=== PATIENT | female | born 1980 | race Caucasian/White ===

== ENCOUNTER 2017-12-29 09:47 | Day surgery (SDC) | payer BC, OTHER ==
[2017-12-28 12:45] VITALS: BMI 22.3
[2017-12-29] MEDS ORDERED: Lidocaine 1% PF 5 ML VIAL ONE (11:11)
[2017-12-29] MEDS ORDERED: PROPOFOL 200 MG/20 ML VIAL ONE (11:11)
[2017-12-29] MEDS ORDERED: Ondansetron HCl/PF 4 MG/2 ML Vial ONE (11:11)
[2017-12-29] MEDS ORDERED: Dexamethasone 20 MG/5 ML VIAL ONE (11:11)
[2017-12-29] MEDS ORDERED: Bupivacaine/Epinephrine 0.25% 30 ML VIAL ONE (11:34)
[2017-12-29] MEDS ORDERED: Fentanyl 100 MCG/2 ML VIAL ONE (11:38)
--- NOTE | 2017-12-29 15:35 | OP ---
DATE OF PROCEDURE: 12/29/2017 PREOPERATIVE DIAGNOSIS: Seizure disorder with a failed vagal nerve stimulator. POSTOPERATIVE DIAGNOSIS: Seizure disorder. PROCEDURE PERFORMED: Removal of vagal nerve stimulator. PROCEDURE IN DETAIL: After consent was obtained, the patient was identified and brought to the opera ting room and placed on the operating table in supine position. General endotracheal anesthesia was obtained. The patient was positioned for surgery. The site of previous excision was identified and it was prepped and draped in sterile fashion. The area was infiltrated with 0.25% Marcaine with 1:10 0,000 epinephrine. The previous scar was excised and the fatty tissue of the breast was dissected do wn until the capsule of the simulator was encountered. We were then able to deliver the stimulator f rom the fibrous capsule and transect the wire lead. The simulator was then removed and hemostasis wa s obtained. The wound was closed in layers with Monocryl for the deep layers and 6-0 Prolene f or the skin. Sterile dressing was applied. The patient was awakened, extubated and taken to recover y room where she remained in stable condition prior to discharge home.
== END 2017-12-29 13:45 | disposition home or self-care (01) ==
LOC: SDC 09:47
PROVIDERS: ATTEND Specialist
DX: Z46.2 Encounter for fitting and adjustment of other devices related to nervous system and special senses (principal); G40.909 Epilepsy, unspecified, not intractable, without status epilepticus; Z98.890 Other specified postprocedural states; Z88.5 Allergy status to narcotic agent; Z88.8 Allergy status to other drugs, medicaments and biological substances; Z79.899 Other long term (current) drug therapy
CPT/HCPCS: 85014; J1100; J2001; J2405; J2704; J3010